=== PATIENT | male | born 1980 | race Caucasian/White ===

== ENCOUNTER 2018-01-21 08:27 | Emergency (ER) | payer SELFPAY ==
[2018-01-21 08:34] VITALS: BP 127/78; PULSE 94; RESP 16; TEMP 206.8; TEMP 97.1; O2SAT 99
--- NOTE | 2018-01-21 08:46 | ED.GENADUL_ITS ---
Disposition Clinical Impression: Cellulitis of hand Disposition: HOME Condition: Good Instructions: Cellulitis (ED) Additional Instructions: Please take the antibiotic as directed. If you notice any spreading of the redness, fever chills, worsening pain please return immediately. If you notice any worsening of your symptoms, or any new symptoms such as vomiting, diarrhea, fever, chills, shortness of breath, chest pain, numbness, weakness, or fainting , please return immediately to the emergency department for reevaluation. Please follow up with your primary care provider as soon as possible for reassessment and reevaluation. As always, it was a pleasure participating in your medical care today. Prescriptions: Clindamycin [Cleocin] 450 mg PO TID #21 cap Medical Decision Making - Medical Decision Making This is a pleasant 38-year-old male with a past medical history of IV drug use in the past, who presents today for evaluation of redness on his hand. He was stuck by a nail 3 days ago, had a small lesion which he was able to exude some pus from on his own, however during his multiple squeezing attempts he feels that it may have spread from the distal ulna to the dorsal aspect of his hand. Currently there is signs of mild cellulitis, no significant abscess noted on ultrasound. Patient has no fever, or chills, vital signs appear within normal limits. Temperature is normal. No signs of systemic bacteremia. Patient does appear clinically well. No evidence of flexor or extensor tenosynovitis on exam. No pain with movement of the finger. At this point we will give the patient a dose of clindamycin here in the ER, secondary to the likelihood of MRSA from his IV drug use. With no signs of systemic infection I feel he can be safely discharged home with close follow-up. We discussed red flags which returned the patient understands. I have extensively reviewed the treatment plan and discharge instructions with the patient. I have addressed all patient concerns at this time. The patient was made aware of what symptoms to monitor for that would warrant a return to the emergency department. Discussed the plan with the patient, they demonstrate verbal understanding and agreement with our assessment and plan at this time. History of Present Illness - General Chief complaint: Orthopedic Stated complaint: RT HAND INJURY Time Seen by Provider: 01/21/18 08:42 - History of Present Illness Initial comments: Pleasant 38-year-old male with past medical history of IV drug use over a year ago who is currently on methadone who presents today for pain in his right hand. 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 He states that 3 or 4 days ago he had a small cut secondary to a cortes nail. This then developed into a small abscess. He lysed it squeezed it multiple times over the last 3 days, in that area improved however it did spread to the dorsal aspect of his hand. He has no significant pain, fever, or chills but states that he was concerned as it seems to be slightly growing. He denies any recent IV drug use or injections in that area. His tetanus shot was updated within the past 2 years here at [facility]. He denies any previous surgeries, he does admit to history of asthma. He denies any current IV or illicit drug use. He denies any pertinent family history. He denies any vomiting diarrhea rash fever , chills, chest pain, headache, vision change, numbness or weakness. He has no other complaints at this time. - Related Data Clindamycin [Cleocin] 450 mg PO TID #21 cap 01/21/18 Methadone [Dolophine] 80 mg PO DAILY 01/21/18 Allergies Allergy/AdvReac Type Severity Reaction Status Date / Time No Known Allergies Allergy Unverified 01/21/18 08:36 Review of Systems Other: 10 point review of systems was performed, pertinent positives and negatives are noted in the history of present illness. Past Medical History - Past Medical History Medical history: no medical history Surgical history: no surgical history General Exam - Other Other exam information: 1.Const: Well-nourished, Well-developed, appearing stated age 2.Eyes: PERRL, no conjunctival injection, and symmetrical lids. 3.ENT: Atraumatic external nose and ears. Moist MM. Neck: Symmetric, trachea midline, No thyromegaly. 4.CVS: +S1/S2, No murmurs or gallops. Peripheral pulses 2+ and equal in all extremities. Brisk capillary refill in all extremities. 5.RESP: Unlabored respiratory effort. Clear to auscultation bilaterally. No wheezes rales or rhonchi 6.GI: Soft, Nontender/Nondistended, No hepatosplenomegaly. No guarding or rebound. 7.MSK: Normocephalic/Atraumatic, Extremities w/o deformity or ttp No cyanosis or clubbing, Normal movement of all extremities. Patient does have a mildly erythematous nonfluctuant lesion with no evidence of abscess noted on bedside ultrasound over the dorsal aspect of his right hand by the medial component of the fifth metacarpal. The area is not warm. There is no active drainage or discharge. No evidence of puncture wound. At the distal ulna, there is evidence of a well-healing scab where his original puncture wound was. The patient has no pain with flexion extension of the wrist flexion or extension of the tendons of the hand. No evidence of active extensor tenosynovitis or flexor tenosynovitis. No other significant abnormalities. The area was outlined with a pen. 8.Skin: Warm, Dry. No rashes or lesions. 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 Sensation grossly intact, no focal neurologic deficits. 10.Psych: (AAO) x3. Appropriate mood and affect Course Vital Signs - 24 hr 01/21/18 08:34 Temperature 97.1 C H Pulse 94 H Respiratory 16 Rate Blood Pressure 127/78 Pulse Oximetry 99
[2018-01-21] MEDS: Clindamycin 150 MG CAP 450 MG PO (08:55)
--- NOTE | 2018-01-23 10:01 | PDOC.ERCMPRO ---
Care Management Progress Note 01/23-Dr. 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 Referral faxed to [facility] this am.
--- NOTE | 2018-01-23 10:03 | CMPROGNOTE_ITS ---
Care Management Progress Note 01/23-Dr. 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 Referral faxed to [facility] this am.
== END 2018-01-21 09:03 | disposition home or self-care (01) ==
PROVIDERS: Emergency Provider Student in an Organized Health Care Education/Training Program
DX: S61.431A Puncture wound without foreign body of right hand, initial encounter (principal); L03.113 Cellulitis of right upper limb; W45.0XXA Nail entering through skin, initial encounter; Y99.0 Civilian activity done for income or pay
CPT/HCPCS: 99283

== ENCOUNTER 2018-01-29 07:44 | Emergency (ER) | payer SELFPAY ==
[2018-01-29 07:52] VITALS: BP 131/110; PULSE 84; RESP 20; TEMP 36.4; O2SAT 90
--- NOTE | 2018-01-29 09:42 | ED.GENADUL_ITS ---
Disposition Clinical Impression: Cellulitis of right hand, Abscess of right hand Disposition: AGAINST MEDICAL ADVICE Condition: Serious Instructions: Cellulitis (ED), Abscess (ED) Additional Instructions: Apply warm compresses to her right hand several times daily for 20 minutes at a time. Take the antibiotics until finished. Take Tylenol or Motrin as needed and directed for pain. Return immediately to the emergency department with any worsening or new concerning symptoms. Prescriptions: Clindamycin [Cleocin] 450 mg PO TID 10 Days cap Medical Decision Making - Radiology Data Radiology results: report reviewed, image reviewed CT right upper extremity: Significant edema over the dorsum of the hand focused on the fifth metacarpal level. No obvious drainable collection noted. X-ray right hand: Dorsal hand swelling along the ulnar aspect of the hand. Findings consistent with cellulitis. No evidence of bony abnormally per - Medical Decision Making 38-year-old male with history of IV drug use, who recently stopped methadone 5 days ago and admitted to IV drug use in his upper extremities and possibly right hand last night who presents with likely a right hand abscess. Patient was seen here 8 days ago for right hand cellulitis after stuck with a nail. ED provider's note at that time did not note an abscess. Patient states he injected methadone in his upper extremity last night to help deal with the pain and his right hand infection blew up since last night. The area on the right dorsal hand appears consistent with likely an abscess. He has significant edema in his right hand compared to his left hand. He has no fever and is not tachycardic with normal blood pressure. Will place an IV, bolus IV fluids, labs , blood cultures, lactate, CT hand to assess extent of infection and give a dose of Toradol for pain. Patient states nothing will touch my pain, especially Toradol. 1025 -- nurse had difficulty obtaining abscess and TRAM Mancera was able to place peripheral IV under ultrasound guidance. Patient states his pain is tolerable if he keeps his right upper extremity elevated and is currently declining pain medication at this time. Patient is feeling symptoms of his restless leg syndrome and he appears anxious. Will give a dose of Ativan. 1033 -- due to brief computer and system downtime this morning, radiology is unable to do CT with IV contrast. Due to concern for abscess, patient will need CT with IV contrast. Will hold on plain CT at this time and obtain right hand x-ray. 1100 --patient denies any relief after Ativan 0.5 mg. He is demanding gabapentin for his restless leg syndrome or states he will leave. Patient is not prescribed this medication therefore I do not feel comfortable giving this to him as he has been getting it off the street. Give a dose of 1 mg Ativan IV. 1130 -- IV contrast with CT scanner not available. Although IV contrast is necessary for infection, will obtain CT w/o contrast for further evaluation. 1140 --radiology states patient unable to sit still for CT. Will give another 1mg ativan. Nurse states that patient is asking to leave again. 1250 --CT right upper extremity notes significant edema in the dorsum of the hand but no obvious drainage collection however this is limited due to lack of IV contrast. Right hand x-ray notes dorsal hand swelling consistent with cellulitis but no bony deformity. Case discussed with orthopedics Dr. Spencer -he agrees that patient would likely need OR I&D and does not recommend invasive intervention in the emergency department. Plan was discussed with patient regarding IV antibiotics and recommend admission for IV antibiotics and likely incision and drainage in the OR. Patient is again refusing to stay. The risks of and disability due to a serious infectious pathology were explained including the risk of losing his hand, sepsis, and patient fully understands and demonstrates capacity to make decisions. Patient states he wants to leave today so he can go to [facility] tomorrow to restart his methadone and then he will return to the ER tomorrow. 1400 --patient was given another hour to help make his decision on whether he wanted to stay and he still refusing. Patient was urged to stay and he was told that we have everything in place that he can get IV antibiotics, IV pain medication if needed, and IV fluids and he still wants to leave. The risks of losing his hand or dying from sepsis were fully explained and he understands these risks and is still refusing. AMA form signed. We will send home with a prescription for clindamycin. Patient was instructed to return immediately to the emergency department with any worsening symptoms. History of Present Illness - General Chief complaint: Cellulitis Stated complaint: HAND INFECTION Time Seen by Provider: 01/29/18 08:31 Source: patient Mode of arrival: ambulatory Limitations: no limitations - History of Present Illness Initial comments: Patient is a 38-year-old male with a history of IV drug use who presents with right hand infection for the past 10 days. Patient was seen here 8 days ago after he was stuck with a nail in his right hand and was noted to have cellulitis but no obvious abscess at that time and given a dose of clindamycin here and a prescription for home. [facility] he did not have the funds to fill the clindamycin prescription and has not taken any antibiotics. [facility] he had been on methadone for the past year due to his previous history of IV drug use but stopped it 5 days ago due to lack of insurance. [facility] he injected heroin in his bilateral upper extremities last night to deal with the pain. [facility] he may have injected around the site of his right hand. [facility] he has had significant worsening of his right hand infection overnight. Denies known fever. - Related Data Clindamycin [Cleocin] 450 mg PO TID #21 cap 01/21/18 Methadone [Dolophine] 80 mg PO DAILY 01/21/18 Clindamycin [Cleocin] 450 mg PO TID 10 Days cap 01/29/18 Allergies Allergy/AdvReac Type Severity Reaction Status Date / Time No Known Allergies Allergy Unverified 01/29/18 07:55 Review of Systems Constitutional: denies: chills, fever Eyes: denies: eye pain ENT: denies: ear pain, dental pain Respiratory: denies: cough, shortness of breath Cardiovascular: denies: chest pain, dyspnea on exertion Gastrointestinal: denies: abdominal pain, nausea, vomiting Genitourinary: denies: urgency, dysuria, frequency Musculoskeletal: denies: back pain Skin: denies: rash, lesions Neurological: denies: headache, weakness, numbness Past Medical History - Past Medical History Sciatica, IV drug use Surgical history: no surgical history - Social History Smoking status: current everyday smoker Drug use: opiates, marijuana General Exam - General Limitations: no limitations General appearance: alert, anxious, other (moderately uncomfortable) - Eye Eye exam: Present: EOMI - Respiratory Respiratory exam: Present: normal lung sounds bilaterally. Absent: respiratory distress, wheezes, rales, rhonchi, stridor - Cardiovascular Cardiovascular Exam: Present: regular rate, normal rhythm. Absent: bradycardia , tachycardia - GI/Abdominal GI/Abdominal exam: Present: soft, normal bowel sounds. Absent: distended, tenderness, guarding, rebound, rigid - Extremities Exam Extremities exam: Present: other (Significantly raised and erythematous area of fluctuance approximately 5 x 5 cm on the dorsal medial hand with surrounding erythema consistent with an abscess. Cap refill less than 2 seconds. There is no crepitus. Significant edema noted to right hand compared to left.) - Neurological Exam Neurological exam: Present: alert, oriented X3 - Psychiatric Psychiatric exam: Present: normal affect - Skin Skin exam: Present: warm, dry, intact Course Vital Signs - 24 hr 01/29/18 07:52 Temperature 97.5 F L Pulse 84 Respiratory 20 Rate Blood Pressure 131/110 Pulse Oximetry 90 L
--- NOTE | 2018-01-29 10:14 | NUR.NOTE ---
Nursing Note: Pt has minimal venous access as he is heavy IV drug user. Peripheral access attempts x3 by EDRN unsuccessful and ED PAwill attempt ultrasound guided. Pt is tolerating to this time.
--- NOTE | 2018-01-29 10:32 | DI.REPORT_ITS ---
SYMPTOM/DIAGNOSIS: RT HAND CELLULITIS/ABSCESS, R/O OSTEOMYELITIS RIGHT HAND: No prior comparison exams are available. There is marked soft tissue swelling over the dorsal aspect of the metacarpal region. No fracture or radiopaque foreign body is seen. No gas collection or bony erosions are present. IMPRESSION: Posterior soft tissue swelling.
[2018-01-29 10:35] LABS: Lactate-non-spesis 1.2 mmol/L (0.6-1.4)
[2018-01-29 10:36] LABS: Abs Immature Grans 0.04 k/cumm (0.0-0.09); Absolute Basophil Count 0.02 k/cumm (0.0-0.2); Absolute Eosinophil Count 0.05 k/cumm (0.0-0.7); Basophils % 0.1; Eosinophils % 0.3; HCT 34.5 % (40.0-50.0); HGB 12.1 g/dL (13.5-17.5); Immature Grans % 0.3; Lymphocytes % 5.5; Mean Corp. HGB Concentration 35.1 g/dL (32.0-36.0); Mean Corpuscular Hemoglobin 29.4 pg (27.0-33.0); Mean Corpuscular Volume 83.9 fL (80-95); Mean Platelet Volume 9.8 fL (8.0-11.0); Monocytes % 5.3; Neutrophils % 88.5; Platelet Count 192 x1000/uL (130-400); RBC 4.11 m/cumm (4.50-6.00); RBC Distribution Width 12.7 % (11.8-14.1); White Blood Cell Count 15.95 k/cumm (4.4-10.8)
[2018-01-29 10:42] LABS: Absolute Lymphocyte Count 0.88 k/cumm (1.2-3.4); Absolute Monocyte Count 0.85 k/cumm (0.11-0.7); Absolute Neutrophil Count 14.12 k/cumm (1.2-6.7)
--- NOTE | 2018-01-29 10:44 | NUR.NOTE ---
Nursing Note: Pt requires ultrasound guided IV and placed by ED PA. #18 to left forearm.
[2018-01-29 10:48] LABS: Anion Gap 8.9 mmol/L (3-11); BUN 15 mg/dL (7-18); CO2 26.1 mmol/L (21.0-32.0); CREATININE 0.99 mg/dL (0.70-1.30); Calcium 8.7 mg/dL (8.5-10.1); Chloride 99 mmol/L (98-107); Glucose 116 mg/dL (70-100); Potassium 3.2 mmol/L (3.5-5.1); Sodium 134 mmol/L (136-145)
[2018-01-29 10:50] LABS: C-Reactive Protein 2.71 mg/dL (0.0-0.3)
[2018-01-29] MEDS: LORazepam 2 MG/ML VIAL 0.5 MG IVP (10:59)
[2018-01-29] MEDS: Normal Saline 1,000 ML 1000 ML IV (11:00)
[2018-01-29] MEDS: Ketorolac 30 MG/ML VIAL IVP (11:00)
--- NOTE | 2018-01-29 11:08 | NUR.NOTE ---
Nursing Note: Pt escalatng in agitated behavior and demanding gabapentin as I am crawling out of my skin and you all don't f--tu understand!!!. Security notified of pts escalting behavior.
[2018-01-29] MEDS: LORazepam 2 MG/ML VIAL 1 MG IVP ×2 (11:10→11:57)
--- NOTE | 2018-01-29 11:12 | NUR.NOTE ---
Nursing Note: Pt in BR with diarrhea and verbalizes you are all ass-h--es and done understand you need to put me out woth the ativan!!
[2018-01-29 11:22] LABS: ESR 27 MM/HR (0-15)
[2018-01-29] MEDS: CLINDAMYCIN 900 MG/50 ML BAG 100 MG IVPB (11:25)
--- NOTE | 2018-01-29 11:26 | NUR.NOTE ---
Nursing Note: Pt allows the lab to complete blood cultures and IV Clindamycin started. Pt is actively back and forth to the BR for loose stool . Following 2nd dose of IV ativan pt is a little more reasonable. 1130: Ambulatory to DI with tech and they are informed he cannot be left alone for fear of elopement with IV in place. Prior to going to radiology pt is fumbling in his pocket I made and a large roll of bills of money falls out of his pocket and he explains I made sure I had $ today for antibiotics.
[2018-01-29 11:33] VITALS: BP 138/79; PULSE 91; RESP 26; TEMP 36.1; O2SAT 100
--- NOTE | 2018-01-29 11:33 | DI.RPTCT_ITS ---
SYMPTOMS/DIAGNOSIS: RIGHT HAND INFECTION, CELLULITIS, ? ABSCESS CT OF THE HAND: Comparison is made with plain films performed earlier the same day. No fracture or bony erosions are seen. There is marked soft tissue swelling over the dorsum of the hand. No foreign body, gas collection or drainable fluid collection is seen. IMPRESSION: Extensive cellulitis over the dorsum of the hand.
--- NOTE | 2018-01-29 12:30 | NUR.NOTE ---
Nursing Note: Pt returned to the ED by JEISON. He completed his films and announces to ED RN I won't be stayin!!. States that the ED MD has no idea how to treat withdrawal and our meds ar a joke. Pt had been advised not to manipulate IV site and when back from DI he is in the process of removing dressing at site and IV fluids are not running. Attempts to irrigate unsuccessful and swelling noted at the site. IV removed.
--- NOTE | 2018-01-29 12:38 | DI.VRAD_ITS ---
EXAM: XR Right Hand Complete, 3 or More Views EXAM DATE/TIME: 01/29/2018 10:33 AM CLINICAL HISTORY: 38 years old, male; Signs and symptoms; Other: R hand cellulitis/abscess, R/O osteomyelitis; Patient HX: Pt unable to hold still for x-ray TECHNIQUE: Frontal, lateral and oblique views of the right hand. COMPARISON: No relevant prior studies available. FINDINGS: Bones/joints: Incidental note made of small bone islands distal radius. No acute fracture. No dislocation. Soft tissues: There is some soft tissue swelling at the ulnar aspect of the level of the fifth metacarpal extending to the dorsum of the hand. No radiopaque foreign body. IMPRESSION: Dorsal hand swelling along the ulnar aspect of the hand. Findings consistent with cellulitis. No evidence for bony abnormality. Preliminary interpretation is based on receipt of 4 image(s). A final report will be issued subsequently. We appreciate the opportunity to be involved in this patient's care. Dictated and Authenticated by: Yoko Casey MD. Ordering:ADRI WAITE MD
--- NOTE | 2018-01-29 12:42 | DI.VRAD_ITS ---
EXAM: CT Right Upper Extremity Without Intravenous Contrast, Hand EXAM DATE/TIME: 01/29/2018 11:34 AM CLINICAL HISTORY: 38 years old, male; Signs and symptoms; Other: R hand cellulitis, R/O abscess; Patient HX: Iv contrast injector down, unable to do iv contrast here TECHNIQUE: Axial computed tomography images of the right hand without intravenous contrast. All CT scans at this facility use at least one of these dose optimization techniques: automated exposure control; mA and/or kV adjustment per patient size (includes targeted exams where dose is matched to clinical indication); or iterative reconstruction. Coronal and sagittal reformatted images were created and reviewed. COMPARISON: CR - RIGHT HAND COMPLETE 2018-01-29 11:24 FINDINGS: Bones/joints: There is significant, diffuse dorsal edema throughout the hand particularly over the fifth metacarpal. There is extent to the carpal level. Unenhanced technique slightly limits evaluation. There is no evidence for drainable collection. No acute fracture. No dislocation. Soft tissues: Unremarkable. IMPRESSION: Significant edema over the dorsum of the hand focused over the fifth metacarpal level. No obvious drainable collection noted allowing for unenhanced technique. Preliminary interpretation is based on receipt of 505 image(s). A final report will be issued subsequently. We appreciate the opportunity to be involved in this patient's care. Dictated and Authenticated by: Yoko Casey MD. Ordering:ADRI WAITE MD
--- NOTE | 2018-01-29 13:16 | NUR.NOTE ---
Nursing Note: Pt continues agitated and had been given a lunch tray which he proceeds to eat from with his fingers, droping food all over the floor/ walking thru it and smearing it on the gurney. When asked what he was doing and why he could not sit and eat as normal his response you got me hig with the Ativan, I told you I needed Gabapentin.!! Repeats many times that we got him high and his agitation/behaviors are our fault!! He has been advised he has to stay in his bed with rails up while in ED for safety but he continues to wander and an extreme amount of nursing time for redirection for safety.
[2018-01-29 14:15] VITALS: BP 143/79; PULSE 89; RESP 22; TEMP 36.9; O2SAT 97
--- NOTE | 2018-01-29 14:45 | NUR.NOTE ---
Nursing Note: 1315: Pt refuses to stay for admission and signs AMA. States he will wait for written instructions and RX that ED MD is willing to give him. He has eaten a sandwich and chips and is resting on the gurney as per ED RN request.
--- NOTE | 2018-01-29 14:58 | NUR.NOTE ---
Nursing Note: 1415: Pt is shown the exit and departs walking stating he probably will have a friend meet him. He has been using his cell phone while in his room. Pt is ambulatory and suggests he keep his arm elevated to assist with pain control. He continues to suggest that we manage his narcotic detox by putting me out with the Ativan instead of just making me high like you have ! but that if we won't he will get methadone tomorrow and be back to the ED. Pt has in his possession written instructions and RX which he states he will go get filled. Pt is observed by security walking down the hill and gazing back to hospital.
--- NOTE | 2018-01-30 09:24 | PDOC.ERCMPRO ---
Care Management Progress Note 01/30-Tried reaching out to Sebastian as he left the emergency department AMA on 01/29. Sebastian was diagnosed with right hand cellulitis and right hand abscess. Called the number listed in Sebastian's chart. It is not a good number. Woman that answered stated that they were not together any more, no further info was available. No other number on chart.
== END 2018-01-29 13:16 | disposition left against medical advice (07) ==
PROVIDERS: Emergency Provider Physician Assistant
DX: L02.511 Cutaneous abscess of right hand (principal); L03.123 Acute lymphangitis of right upper limb; Z53.29 Procedure and treatment not carried out because of patient's decision for other reasons; F11.90 Opioid use, unspecified, uncomplicated
CPT/HCPCS: 36410; 80048; 85652; 87040; 96365; 96374; 96376; 99284; 73130; 73200; 83605; 85025; 86140; J1885; J2060

== ENCOUNTER 2020-11-11 12:10 | Emergency (ER) | payer MEDICAID, SELFPAY ==
[2020-11-11] VITALS (7 sets, daily range): BP systolic 123–137; BP diastolic 86–95; PULSE 59–77; RESP 15–17; TEMP 36.8; O2SAT 99–100
--- NOTE | 2020-11-11 12:30 | RT.EKG_ITS ---
APPROVED REPORT Exam: Resting ECG Reason for Exam: peripheral edema, shortness of breat Patient Location: E HR:71 bpm ECG Measurements Heart Rate 71 AXIS NH 135 P 60 QRSd 95 QRS -38 QT 389 T 42 QTc 422 Conclusion Sinus rhythm...normal P axis, V-rate 60- 99 Left axis deviation...QRS axis (-30,-90) ST elev, probable normal early repol pattern...ST elevation, age<55
--- OUTSIDE RECORDS SUMMARY | 2020-11-11 12:30 | XMS_ITS ---
:1980 Author Care Team Providers Name Role Phone Adrianna Zelaya Primary Care Provider Unavailable Allergies Code Code System Name Reaction Severity Status Onset NKDA ? Medications Name Status Start Date Stop Date ? ? gabapentin 600 mg tablet Active ? Not blaise ilable Take 1 tablet 3 times a day by oral route for 7 days. naltrexone 50 mg tablet Active ? Not avai lable Take 1 tablet every day by oral route for 30 days. Vivitrol 380 mg intramuscular suspension,extended release Active ? Not available Inject 4 mL every 4 weeks by intramuscular route for 1 day. Problems Name Status Onset Date Source ? Anxiety Active 09/30/2020 ? Opioid Dependence Active 09/30/2020 ? 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 Intravenous Drug User Active 09/30/2020 ? Procedures Notes: I&D OF AC ABSCESS SEVERAL YEARS AGO Results Lab Results Date Name Specimen Result Interpretation Description Value Range Status Address ? 09/30/2020 Drug UR ? Amphetamines negative 1,000 Jailyn l [place] Screen, NG/mL NG/mL Health: Urine [address], [place] ? ? UR ? Benzodiazapines negative 200 Final [place] NG/mL NG/mL Health: [address], [place] ? ? UR ABNORMAL Buprenorphine negative 5 Final [place] NG/mL NG/mL Health: [address], [place] ? ? UR ? Cocaine negative 150 Final [place] Metabolite NG/mL NG/mL Health : [address], [place] ? ? UR ? Opiates negative 300 Final [place] NG/mL NG/mL Health: [address], [place] ? ? UR ? Oxycodone negative 300 Final [place] NG/mL NG/mL Health: [address], [place] ? ? UR ? Fentanyl negative 2 Final [place] NG/mL NG/mL Health: [address], [place] ? ? UR ? Ethyl Alcohol negative 10 Final [place] mg/dL mg/dL Health: [address], [place] ? ? UR ? Methadone negative 300 Final [place] Metabolite NG/mL NG/mL Health : [address] ? ? UR ? Urine Creatinine 40.7 mg/dL 20 Fi nal [place] mg/dL Health: [address], [place] ? ? UR ? Urine pH 7.40 4.5-9. Final [place] 0 Health: [address] ? ? UR ? Specific [place] 1.009 1.003- Final [place] 1.035 Health: [address] Past Encounters 10/07/2020 Opioid Dependence Chiquita Gonzalez, LADIES SUIT OPERATOR: [address], [place] [address], Ph. 09/30/2020 Opioid Dependence; Methamphetamine Depen brigidace Adrianna Zelaya, LADIES SUIT OPERATOR: [address] [place] [address], Ph. Social History None recorded. Vaccine List None recorded. Plan of Care Patient Instructions Abstain from opiates for 24 hours unless directed by provider; > If already taking buprenorphine, do not take a dose the day of the induction until you are in the office with your provider; &g t; Comfort medications were recommended. If accepted, please take as prescribed to support your ability to abstain from opiates until your buprenorphine induction; > Keep your buprenorphine RX packa ge closed until you are seen by your pro vider for induction unless otherwise directed; If you have problems abstaining from opiates, please call the office. As part of your individualized treatmen t plan and program requirement, you will need to bring your correct prescription bottle and all used and unused medication and counseling verification to each miguel ointment; > Agree to participate in cou nseling and bring counseling verification to each appointment; > Agree to present for random visits; > Agree to not falsify your urine specimens. Abstai n from opiates for 24 hours unless direc nena by provider; > If already taking buprenorphine, do not take a dose the day of the induction until you are in the office with your provider; > Comfort m edications were recommended. If accepted , please take as prescribed to support your ability to abstain from opiates until your buprenorphine induction; > Keep your buprenorphine RX package closed un til you are seen by your provider for in duction unless otherwise directed; If you have problems abstaining from opiates, please call the office. As part of your individualized treatmen t plan and program requirement, you will need to bring your correct prescription bottle and all used and unused medication and counseling verification to each miguel ointment; > Agree to participate in cou nseling and bring counseling verification to each appointment; > Agree to present for random visits; > Agree to not falsify your urine specimens. Abstai n from opiates for 24 hours unless direc nena by provider; > If already taking buprenorphine, do not take a dose the day of the induction until you are in the office with your provider; > Comfort m edications were recommended. If accepted , please take as prescribed to support your ability to abstain from opiates until your buprenorphine induction; > Keep your buprenorphine RX package closed un til you are seen by your provider for in duction unless otherwise directed; If you have problems abstaining from opiates, please call the office. As part of your individualized treatmen t plan and program requirement, you will need to bring your correct prescription bottle and all used and unused medication and counseling verification to each miguel ointment; > Agree to participate in cou nseling and bring counseling verification to each appointment; > Agree to present for random visits; > Agree to not falsify your urine specimens. Reminders Provider Appointments None recorded. ? ? Lab None recorded. ? ? Referral None recorded. ? ? Procedures None recorded. ? ? Surgeries None recorded. ? ? Imaging None recorded. ? ? Vitals None recorded.
--- OUTSIDE RECORDS SUMMARY | 2020-11-11 12:30 | XMS_ITS | Encounter Summary ---
:1980 Author Reason for Visit OUD - initial visit*; MAT telemedicine* Assessment and Plan Assessment Note This telmed (audio + visual) appoin tment provided a MAT prescription. Time Start: 929; Time End:10:15 Provider Location: home; Patient Locati on: office Telemedicine Consent Given (verbal): Leila PRINGLE IS A 40 YO MALE HERE TODAY FOR AN IN ITIAL VISIT FOR OUD. HE WAS RECENTLY RELEASED FROM [facility] AND HAD HIS FIRST VIVITROL INJECTION ON 09/23/2020 AND WILL BE DUE FOR HIS SECOND ON 10/21/2020. HE WO ULD LIKE TO HAVE CARE WITH THIS OFFICE A S HE CAN WALK THERE. HE DESCRIBES A LONG HISTORY OF OUD, AND STIMULANT USE DISORDER. HE BEGAN USING METH ABOUT 1.5 YEARS AGO AND HAS FOUND THAT HIS LIFE HAS DETERIORATED DUE TO THIS USE. HE STATES THE LOW POINT WAS WHEN HE SLEPT WITH A 17 YEAR OLD, STATES I AM THE DAD OF A 15 YO GIRL- I WOULD NEVER DO THAT WHEN I AM IN MY RIGHT MIND HE REPORTS THAT HIS IS DOING WELL NOW- H E WAS ON 16MG OF SUBOXONE AND STOPPED THIS COLD TURKEY 17 [address] A[address] [facility]. HE STATES THAT HE FELT THAT SUBOXONE ALLOWED HIM TO CONTINUE USING HE COULD ALTERNATE BETWEEN ILLICIT HEROIN U SE AND SUBOXONE. STATES THAT HE WAS THE SAME WHEN HE WAS USING METHADONE YEARS BACK. SEBASTIAN IS SINGLE, HE DOES HAVE A 17 YO SON AND AND 15 YO DAUGHTER. REPORTS HIS IS A LONG TIME IVDU, HAS HAD ID PANELS IN THE PAST, REPORTS THAT THEY HAVE ALWAYS BEEN NEGATIVE. HE DID HAVE RECENT LABS- WILL REQUEST THESE RESULTS SO THAT THEY CAN BE REVIEWED PRIOR TO HIS NEXT INJECTION. DISCUSSED THE RISKS AND BENEFITS OF NAHOMY TROL- INCLUDING OD AND IF OVERRIDE WITH OPIATE IS ATTEMPTED. ADVISED THAT HE WEAR A MEDICAL ALERT BRACELET. PINO HAS BEEN ON GABAPENTIN FOR HIS ANXIE TY SINCE HE WAS IN [facility]. HE IS STARTING WITH A NEW PCP IN SEVERAL WEEKS AND WOULD LIKE TO HAVE THIS MEDICATION COVERED. WILL DO THIS FOR HIM. WILL ORDER NEXT INJECTION AND BACK UP NA LTREXONE. The patient's current phase of treatmen t is Stabilization OUD. Assessment/Plan The patient does meet diagnostic criter ia for opioid dependence. Will proceed with MAT Vivitrol injection at recommended dose, see order. Referrals made today include substance abuse counseling. The audrey [facility]a does not need the suggested e-pres cription of comfort medication. A urine drug screen is ordered, with co nfirmation if positive. See drug screen and medical necessity below. Initial lab studies ordered include HCG (female), CBC with differential, Comprehensive metabolic, Hepatic panel, coag, Hep B, C, and HIV. Education and counseling provided at t he Comprehensive Addiction Initial Assessment included: > The patient is counseled re short ter m goal of harm reduction and the group home goal of abstinence. > Education re risks and benefits of both MAT options: buprenorphine and naltrexone. > If proceeding with buprenorphine, prior to induction with buprenorphine patient is to abstain from short acting opioids 12-24 hours and long acting opioids 72 hours (methadone < 30 mg/day). > If proc eeding with naltrexone, prior to inducti on with naltrexone the patient is to abstain from any opioids 7-10 days and until provider has deemed UDS appropriate to proceed. > Reviewed Program Expectatio ns at length and medication assisted remy atment options. > Education provided re best way to take medication. > Patient was instructed to bring RX bottle to every visit. > Education provided re common and serious side effects of bupre norphine and naltrexone. > Discussed safe keeping of RX including lock box. > Consents and contracts reviewed and signed with patient. > Discussed ration pedro and requirement of psychotherapy to support recovery. > Reviewed process of UDS and random visit requirements. > Discussed the expectation for building trusting relationship to promote a succe ssful recovery. > Reviewed that diversio n or misuse of medication will not be tolerated and is cause for dismissal from the program. Prescription monitoring program is revi ewed. If reviewed, I have identified agents prescribed to the patient in addition to any issued by our program; the patient is counseled regarding any risk of combining sedating agents. 1. Opioid dependence UNSTABLE- NEW TO TREATMENT ? drug screen, urine 2. Methamphetamine dependence UNSTABLE- LAST USE 17 DAYS AGO Discussion Note Education provided at today's visit included: Review of patient's individualized treatment plan; Review of program polici es: RX, visit, counseling and DATA compliance; Review medication administra tion technique; Discussion proper care of medication/safety/lock box; Counseling r e: trigger avoidance, relapse prevention and the importance of developing a sober net work; Counseling re safe sex and control; Review risk of BZD and BUP, as well as ETOH; Counseling re: Discovery & Drop out prevention in early recovery. Educat ion provided at today's visit included: Review of patient's individualized treat ment plan; Review of program policies: RX, visit, counseling and DATA compliance; R eview medication administration technique; Discussion proper care of medication/saf ety/lock box; Counseling re: trigger avoidance, relapse prevention and the im portance of developing a sober network; Counseling re safe sex and control ; Review risk of BZD and BUP, as well as ETOH; Counseling re: Discovery & Theodore p out prevention in early recovery. Education provided at today's visit included: Revi ew of patient's individualized treatment plan; Review of Specialty pharmacy george galvez; Review of program policies: urine screening, medication, visit, counseling requirement; Discussed importance of avoiding opioid and alcohol while on Varsha itrol Treatment; discussed Vivitrol?s common and serious side effects; Counseled sweta abarcaing risk of if overdosed with alcohol or opioid while on Vivitrol treatment; Bakari jovel re: trigger avoidance, relapse prevention and the importance of develop ing a sober network; Counseling re safe sex and control; Counseling re: Discov sweta & Drop-out prevention in early recovery. Greater than 50% of today's visit spent face to face counseling and coordinating care. Education provided at today's visi t included: Review of patient's individualized treatment plan; Review of program policies: RX, visit, counseling and DATA compliance; Review medication admin istration technique; Discussion proper care of medication/safety/lock box; Counselin g re: trigger avoidance, relapse prevention and the importance of developing a sober network; Counseling re safe sex and control; Review risk of BZD and BUP, as well as ETOH; Counseling re: Discovery & Drop out prevention in early recovery. Patient educational handouts: No information available. Plan of Care Patient Instructions Abstain from [...] your urine specimens. Reminders Provider Appointments None ? ? recorded. Lab Drug 09/30/2020 [facility] Screen, Urine Referral None ? ? recorded. Procedures None ? ? recorded. Surgeries None ? ? recorded. Imaging None ? ? recorded. Medications Name Start Date ? ? gabapentin 600 mg tablet ? Take 1 tablet 3 times a day by oral route for 7 days. naltrexone 50 mg tablet ? Take 1 tablet every day by oral route for 30 days. Vivitrol 380 mg intramuscular suspension,extended rele ase ? Inject 4 mL every 4 weeks by intramuscular route for 1 day. Medications Administered None recorded. Vitals None recorded. Results Lab Results Date Name Specimen Result Interpretation Description Value Range Status Address ? 09/30/2020 Drug UR ? Amphetamines negative 1,000 Jail[address] [place] Screen, NG/mL NG/mL Health: Urine [address], [place] ? ? UR ? Benzodiazapines negative 200 Final [place] NG/mL NG/mL Health: [address], [place] ? ? UR ABNORMAL Buprenorphine negative 5 Final [place] NG/mL NG/mL Health: [address], [place] ? ? UR ? Cocaine negative 150 Final [place] Metabolite NG/mL NG/mL Health : [address], [place] ? ? UR ? Opiates negative 300 Final [place] NG/mL NG/mL Health: [address], [place] ? ? UR ? Oxycodone negative 300 Final [place] NG/mL NG/mL Health: [address], [place] ? ? UR ? Fentanyl negative 2 Final [place] NG/mL NG/mL Health: [address], [place] ? ? UR ? Ethyl Alcohol negative 10 Final [place] mg/dL mg/dL Health: [address], [place] ? ? UR ? Methadone negative 300 Final [place] Metabolite NG/mL NG/mL Health : [address], [place] ? ? UR ? Urine Creatinine 40.7 mg/dL 20 Fi nal [place] mg/dL Health: [address], [place] ? ? UR ? Urine pH 7.40 4.5-9. Final [place] 0 Health: [address], [place] ? ? UR ? Specific [place] 1.009 1.003- Final [place] 1.035 Health: [address] Allergies Code Code System Name Reaction Severity Onset NKDA ? ? ? Problems Name Status Onset Date Source ? Anxiety Active 09/30/2020 ? Opioid Dependence Active 09/30/2020 ? 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 Intravenous Drug User Active 09/30/2020 ? Procedures Notes: I&D OF AC ABSCESS SEVERAL YEARS AGO Vaccine List None recorded. Social History None recorded. Family History Relation Problem Onset Age of Age Notes Brother Addiction (No N/A TOO MANY FAMILY Information) MEMBERS TO LIST . Mother Alcohol abuse (No N/A (No Notes) Information) Functional Status Unknown. Past Encounters 09/30/2020 Opioid Dependence; Methamphetamine Depen yesika Zelaya, WOOL HAT HYDRAULICKER: [address] [place] [address], Ph. History of Present Illness Note: <p><strong>Initial MAT HPI</strong>
</p>The patient presents today seeking outpatient treatment for {{opiate* alcohol both opiate and alcohol}} dependence.
Current readiness for treatment/stage of change is described as {{pre-contemplation contemplation pr eparation action* maintenance}}.
Onset of substance dependence, beginning with first substance used and all illicit and/or prescription abuse to date and including current substances: {{I hurtmy back in my 20s and was started on pain pills and it just went on from there. I started using oxy [address] and injecting everything. I started using meth in the last year and it blew my life apart.# CLICK TO FREE TEXT}}.
Current or most recent route of primary substance use is described as {{oral intranasal skin popping intravenous*}}.

The patient {{d enies reports*}} a history of IV drug use.
The patient {{denies* reports}} a history of overdose. The patient {{denies reports*}} a history of witnessing an overdose.
The patient {{denies reports*}} having ever used or been prescribed Methadone. The patient's last exposure to Methadone was TWO YEARS AGO
The patient {{denies reports*}} having ever used or been prescribed Buprenorphine. The patient's last exposure to Buprenorphine was 17 DAYS AGO

<strong>Attempts to stop including past and/or most recent:</strong>
> Inpatient detox: {{Y* N}}
> Residential and/or Sober Housing: {{Y N*}}
> Periods of sobriety during incarceration: {{Y* N}}
> Intensive Outpatient Program: {{Y* N}}
> Partial Hospitalization Program: {{Y N*}}
> Medication assisted treatment program(s): {{Y* N}}
Most successful program to date has been {{none methado ne/OTP inpatient residential sober living buprenorphine bup+residential Vivitrol* Vivitrol+residentia l incarceration}}.
The patient describes individual goals for substance dependence treatment as {{I WANT TO BE FREE# CLICK TO FREE TEXT}}.<p></p><p></p> Review of Systems ? Comprehensive Adult Problem ROS Reported By: Patient Constitutional: Constitutional: no significa nt weight change, no fever, normal activity level Cardiovascular: Cardiovascular: no chest klaudia n Respiratory: Respiratory: no cough, no ch est tightness, normal respiration Gastrointestinal: GI: no nausea, no vomiting, no diarrhea, no constipation Musculoskeletal: Musculoskeletal: no myalgia, moves all extremities well, no trauma Neurological symptoms: Neuro: no headache Psychiatric: Psych: no suicidal thoughts, no homicidal thoughts, depression, anxiety, insomni a, stress Physical Exam ? General Adult Exam* Reported By: Patient Constitutional*: General Presentation: health y-appearing, well-developed. Level of Distress:* no apparent distr ess (NAD)*, responsive in conversation*. Ambulation: a mbulating normally Psychiatric*: Insight:* good judgement*. M jenni:* recent memory normal*. Mental Status* active & alert*, nor mal affect*, normal mood* Head: Head: normocephalic, atrauma tic Lungs*: Auscultation: no auscultatio n Musculoskeletal:: Joints, Bones, and Muscles: normal movement of all extremities Neurologic*: Orientation:* to time*, to p lace*, to person*
--- OUTSIDE RECORDS SUMMARY | 2020-11-11 12:30 | XMS_ITS | Encounter Summary ---
:1980 Author Reason for Visit OUD - naltrexone follow-up - weekly*; MA Javier telemedicine* Assessment and Plan Assessment Note Telemedicine Information: This telmed (audio + visual) appointmen t provided a MAT prescription. Time Start: 11:35; Time End:11:51 Provider Location: office; Patient Loca tion: home Telemedicine Consent Given (verbal): Y The patient's current phase of treatment is Stabilization OUD Review of recent UDS and LCMS is NEGATIV E FOR ALL ILLICIT SUBSTANCES AND EtOH The patient does meet diagnostic criteri a for opioid dependence. The patient doescontinue to be a good ca ndidate for this level of care. Urine drug screen with medical necessity ordered today see below. MEDICAL UPDATE: THIS IS THE 2ND VISIT FOR THIS PATIENT W HO STATES HE HAS NOT USED OPIOIDS IN 12 YEARS. SAYS HE CHOSE TO GO ON [facility] AFTER COMING OFF SUBOXONE BECAUSE I'M AN ADDICT AND DOESN'T WAN T TO RELAPSE. ALSO SAYS IT HELPS WITH P ROBATION. LAST USE OF ILLICIT SUBSTANCES WAS IN [facility] JUST BEFORE GOING INTO REHAB. USED METH, CRACK, LSD AND VYVANSE THE NIGHT BEFORE GOING INTO REHAB STATES NO SUBSTANCES SINCE. STATES HE WE NT TO REHAB TO COME OFF OF SUBOXONE, NOT FOR OTHER DRUG OR EtOH USE PT STILL SUFFERS FROM INSOMNIA WHICH HE ATTRIBUTES TO PROLONGED WITHDRAWAL FROM SUBOXONE. HAS TRIED PRESCRIBED SEROQUEL AND TRAZODONE WITHOUT MUCH HELP. TOOK A FRIEND'S AMITRIPTYLINE WITH GOOD RESULTS. I HAVE EMPHASIZED IT IS NOT SAFE TO TAKE ANOTHER PERSON'S PRESCRIPTION MEDICATION. SAYS HE WILL NOT TAKE ANY MORE. PT IS RESISTANT TO COMING WEEKLY FOR VIS ITS/UDS. DESPITE RECENT USE OF CRACK AND METH, FEELS HE IS STABLE I HAVE EXPLAINED THAT HE WILL NEED 8 WEE KS OF NEG SCREENS BEFORE HE CAN PROGRESS TO BIWEEKLY VISITS SAYS HE WILL COMPLY BUT I'M NOT HAPPY TODAY'S VISIT WAS VIA [facility] BECAUSE HE DI DN'T REALIZE HE NEEDED TO COME IN. STATES HE WILL GO TO [facility] TOMORROW TO GIVE UDS SPECIMEN Visit frequency recommendations include continue current frequency of visits. Treatment plan review or change TODAY in cludes continue current level of care. PT WILL NEED NEXT VIVITROL INJECTION ON 10/21/20 39299 Medical Necessity UDS is ordered today for a routine presu mptive screen. Results will be confirmed to assess those illicit substances showing positive on the presumptive screen, the substance dependency and the effectiveness of treatment. A Qualitative Urine Drug screening may i nclude the following substances: amphetamines, benzodiazepines, buprenorphine, cocaine metabolites, ethanol, methadone, opiates, oxycodone, fentanyl and THC. This patient has an extraordinarily high pre test probability of current positive illicit substance use given the previously documented substance use pattern (see Initial visit, follow up visits and past med ical/social history) in addition to a hi story of longstanding substance dependence. G0480 Medical Necessity Definitive/quantitative drug testing may be ordered due to the unexpected drug test results from the presumptive/qualitative drug test ordered at the patient visit. This test may include confirming the presence of an illicit substance in one or more of the following drug classes: amphetamines, benzodiazepines, buprenorphine, cocaine metabolites and opiates or for the lack of a prescribed substance. Th e results of the definitive test are req uired to assess the patient?s substance use dependency and the effectiveness of the treatment. Specimen validity testing is performed to ensure the integrity of the sample. [place] [address] [place] [address] or negative for buprenorphine. G0481 Medical Necessity Definitive/quantitative drug testing may be ordered due to the unexpected drug test results from the presumptive/qualitative drug test ordered at the patient?s Initial or Re-Initial visit. This t est may include confirming the presence of an illicit substance in one or more of the following drug classes: Opiates, Cocaine, Benzos, Amphetamines, Gabapentin, Pregabalin, Zolpidem, Tramadol, Methylph enidate or for the lack of a prescribed substance. The results of the definitive test are required to assess the patient?s substance use dependency and the effectiveness of the treatment. Specime n validity testing is performed to ensur e the integrity of the sample. [place] [address] is positive for Opiat es and at least one other class in combination. 1. Opioid dependence UNSTABLE--NEWLY IN TREATMENT ? drug screen, urine Discussion Note Education provided at today's visit included: Review of patient's individualized treatment plan; Review of program polici es: urine screening, medication, visit, counseling requirement; Discussed import ance of avoiding opioid and alcohol while taking naltrexone; discussed naltrexone? s common and serious side effects; Counseling re: trigger avoidance, relapse preventio n and the importance of developing a sober network; Counseling re safe sex and tom h control; Counseling re: Discovery & Drop-out prevention in early recovery. G reater than 50% of today's visit spent face to face counseling and coordinating care . Patient educational handouts: No information available. Plan of Care Reminders Provider Appointments None ? ? recorded. Lab Drug 10/07/2020 [facility] Screen, Urine Referral None [...] recorded. Vitals None recorded. Results Lab Results None recorded. Allergies Code Code System Name Reaction Severity [...] Notes) Information) Functional Status Unknown. Past Encounters 10/07/2020 Opioid Dependence Chiquita Gonzalez, DIABETES SPECIALIST: [address] [place] [address], Ph. 09/30/2020 Opioid Dependence; Methamphetamine Depen yesika Zelaya, DIABETES SPECIALIST: [address] [place] [address], Ph. History of Present Illness Note: <p>The patient is here for {{oral naltrexone follow up oral naltrexone challenge pre-Vivitrol Vivitrol injection Vivitrol follow up*}} visit.
The patient reports {{doing better doing well* struggling}} since last visit and {{denies* reports}} slip or relapse.

<strong>MAT HPI</strong>
They {{deny* report}} cravings for {{opiates* alc ohol opiates and alcohol}} and {{deny* report}} {{opiates* alcohol opiates and alcohol}} use since their last visit.
They {{deny* report}} cravings for other substances and {{deny* report}} other substance use since their last visit.
Triggers {{are are not*}} identified
Withdrawal symptoms {{are are not*}} present.

<strong>MAT Naltrexone Ad ministration and Program Adherence</strong>
The patient {{denies* describes}} problems at the last injection site. INJECTION WAS GIVEN WHILE IN REHAB 2 WEEKS AGO. STATES HE TOLERATED IT WELL
The patient {{denies* reports}} side effects from the medication.
</p> Review of Systems ? Comprehensive Adult Problem ROS Reported By: Patient Constitutional: Constitutional: normal activ ity level, no chills, no excessive sweating Gastrointestinal: GI: no abdominal pain, no na usea, no vomiting, no diarrhea, no constipation Musculoskeletal: Musculoskeletal: no myalgia Neurological symptoms: Neuro: no headache Psychiatric: Psych: no suicidal thoughts, no depression, no anxiety, no insomnia Physical Exam ? General Adult Exam* Reported By: Patient Constitutional*: General Presentation: health y-appearing, well-developed. Level of Distress:* no apparent distr ess (NAD)*, responsive in conversation* Psychiatric*: Mental Status* active & aler t*, normal affect* Skin: Inspection and palpation: no rash, no lesions
--- NOTE | 2020-11-11 12:41 | W.ED.GENAD ---
Discharge Plan Disposition Patient Disposition: HOME Condition: Good Discharge Details Clinical Impression: Malaise, Edema, peripheral Primary Care Provider: Red Tobar ED Provider: June Keys Home Meds and New Rx's Prescriptions: New furosemide [Lasix] 20 mg tablet 10 mg PO ONCE PRN (Reason: edema) Qty: 7 RF: 0 No Action No Known Home Meds RF: 0 Discharge Instructions Additional Instructions: Please primary care acquire pcp Written you a prescription for several tabs of Lasix, this medication can cause your electrolytes to be abnormal, only take it if you have pain with peripheral swelling It is very important that you follow-up/acquire primary care physician Elevate your legs if they become swollen Please return should you have new or worsening complaints including shortness of breath, chest pain, fever, chills, or with any new or worsening Discharge Data Discharge Date/Time-TO BE ENTERED AT DEPARTURE: 11/11/20 14:02 Medical Decision Making Sed rate is within normal limits, diagnostic labs are all quite reassuring, chest x-ray does not show acute pathology, patient feels well and only have mild peripheral edema He was given several tablets of Lasix which she can take as needed He is given referral for primary care physicianon the care management list for follow-up Thyroid does not show acute pathology, he is alert, oriented, of decisional capacity, and well in appearance No clinical evidence of endocarditis on my exam today, no evidence of volume overload, distal pulses intact, no abdominal bruit or pulsatile male Denies any current chest pain or shortness of breath Differential Diagnosis Differential Diagnosis: Endocarditis, CHF, peripheral vascular disease, venous stasis Medical Records Medical records reviewed: Yes I reviewed the patient's medical records. Lab Data Lab results reviewed: Yes I reviewed the patient's lab results. ECG Data Prior ECG tracings: available for review HPI General Mode of arrival: ambulatory. Date/Time Provider Initiated Documentation: 11/11/20 12:12. Limitations to Documentation: no limitations. Information obtained by: patient. HPI Narrative: This 40-year-old gentleman with history of IV drug abuse presents with report of peripheral edema. States he has had an increasing fatigue. Denies any current chest pain or shortness of breath. States symptoms are exacerbated with exertion. Last used IV heroin 1 year ago. States she has been using intermittent oral Suboxone and Ritalin to try to help with his fatigue. But if he denies any fever or chills. Denies any rashes or lesions. States he has paresthesias in his lower extremities as well. Denies any orthopnea. States that he lays down for an extended period of time his symptoms partially dissipate. Denies prior history of similar symptoms in the past. States that going on for approximately 1.5 months Related Data Home Medications Medication Instructions Recorded Confirmed Unknown [No Known Home Meds] 11/11/20 11/11/20 furosemide [Lasix] 10 mg PO ONCE PRN #7 tab 11/11/20 Previous Rx's Medication Instructions Recorded furosemide [Lasix] 10 mg PO ONCE PRN #7 tab 11/11/20 Allergies Allergy/AdvReac Type Severity Reaction Status Date / Time No Known Allergies Allergy Unverified 11/11/20 12:25 General Stated Complaint: GenMedical TYLER: 3 Review of Systems Narrative: Review of systems obtained x7 aside from where indicated in HPI [facility] Social History (Updated 10/30/20 @ 08:21 by Teodora Enciso RN, RN) Smoking/Tobacco Use Status: Current every day Tobacco Type: cigarettes Smoking risk assessment performed?: Yes Alcohol Intake: never Drug use: Current Sobriety Details: 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 ritalin recently Do you feel safe in your relationship?: Yes Exam Const General: cooperative and comfortable Orientation: alert and oriented x3 Eyes Pupils: PERRL Chest Chest: normal inspection of the chest Resp Effort & Inspection: normal respiratory effort Cardio Rate: regular rate Rhythm: regular rhythm Heart Sounds: no murmurs GI Inspection: normal to inspection Skin General skin exam: no rashes or lesions noted Neuro General: patient alert and patient oriented x3 Extrem Other: 1+ edema to bilateral upper and lower extremities Course Vital Signs Vital signs: Vital Signs Temperature 36.8 C 11/11/20 12:20 Pulse 77 11/11/20 12:20 Respiratory Rate 16 11/11/20 12:20 Blood Pressure 137/95 H 11/11/20 12:20 Pulse Oximetry 99 11/11/20 12:20 Temperature 36.8 C 11/11/20 12:20 Temperature Source Skin 11/11/20 12:20 Pulse 77 11/11/20 12:20 Respiratory Rate 16 11/11/20 12:20 Respiratory Effort Non-Labored 11/11/20 12:20 Blood Pressure 137/95 H 11/11/20 12:20 Blood Pressure Position Supine 11/11/20 12:20 Pulse Oximetry 99 11/11/20 12:20 Oxygen Delivery Method Cpap 11/11/20 12:20 Oxygen Flow Rate 0 11/11/20 12:20 Pain Level 1 11/11/20 12:20
[2020-11-11 13:12] LABS: Abs Immature Grans 0.01 10^3/uL (0.0-0.06); Absolute Basophil Count 0.01 10^3/uL (0.0-0.2); Absolute Eosinophil Count 0.12 10^3/uL (0.0-0.7); Absolute Lymphocyte Count 1.39 10^3/uL (1.2-3.4); Absolute Monocyte Count 0.38 10^3/uL (0.1-0.8); Absolute Neutrophil Count 3.85 10^3/uL (1.2-6.7); Basophils % 0.2; Eosinophils % 2.1; HCT 41.9 % (40.0-50.0); Immature Grans % 0.2; Lymphocytes % 24.1; MCHC 33.4 % (32.0-36.0); MCV 86.9 fL (80-95); MPV 9.6 fL (8.0-11.0); Monocytes % 6.6; Neutrophils % 66.8; Nucleated RBC 0 %; Platelet Count 252 10^3/uL (130-400); RBC 4.82 10^6/uL (4.36-5.78); RDW 12.6 % (11.8-14.1); WBC 5.76 10^3/uL (4.4-10.8)
[2020-11-11 13:14] LABS: ESR 6 mm/hr (0-15)
[2020-11-11 13:29] LABS: Bilirubin Negative (Negative); Blood Trace-intact (Negative); Clarity Clear (Clear); Glucose Negative (Negative); Ketones Negative (Negative); Leukocyte Esterase Negative (Negative); Nitrite Negative (Negative); Specific Gravity 1.025 (1.005-1.025); Urobilinogen 0.2 EU/dL (Up TO 0.2)
[2020-11-11 13:39] LABS: TSH 2.48 uIU/mL (0.36-3.74)
[2020-11-11 13:39] LABS: Bacteria Few HPF (Negative); C & S Indicated? No; Casts Negative LPF (Negative); Crystals Negative HPF (Negative); Epithelial Cells Negative HPF (Negative); Mucus Moderate (Negative); WBC 0-2 HPF (0-5)
[2020-11-11 13:42] LABS: ALT 21 U/L (16-63); AST 14 U/L (15-37); Albumin 3.7 g/dL (3.4-5.0); Alkaline Phosphatase 61 U/L (46-116); Anion Gap 7.4 mmol/L (3-11); BUN 14 mg/dL (7-18); Bilirubin, Total 0.4 mg/dL (0.2-1.0); CO2 28.6 mmol/L (21.0-32.0); CREATININE 0.9 mg/dL (0.70-1.30); Calcium 8.6 mg/dL (8.5-10.1); Chloride 104 mmol/L (98-107); Glucose 102 mg/dL (74-106); Magnesium 1.9 mg/dL (1.8-2.4); NT-proBNP 35 pg/mL (<300); Potassium 4.2 mmol/L (3.5-5.1); Sodium 140 mmol/L (136-145); Total Protein 7.2 g/dL (6.4-8.2)
[2020-11-11 13:43] LABS: Troponin I < 0.05 ng/mL (<0.06)
--- NOTE | 2020-11-11 13:52 | NUR.NOTE ---
Nursing Note: Referral given to Care Management to establish care w/PCP and for routing follow up. Edith Coker
--- NOTE | 2020-11-11 14:16 | DI.RAD_ITS ---
Exam(s) XR CHEST 2V PA LATERAL EXAM: XR CHEST 2V PA LATERAL CLINICAL HISTORY: peripheral edema TECHNIQUE: 2D digital imaging was performed. COMPARISON: No exams were available for comparison FINDINGS: MEDIASTINUM: Normal. HEART: Normal. PULMONARY VASCULATURE: Normal. LUNGS: Clear. PLEURAL SPACE: No pleural effusion or pneumothorax. BONE:Normal. OTHER FINDINGS:Normal. IMPRESSION: No acute pulmonary findings. DATA REPOSITORY: RADIATION DOSE DELIVERED:
--- NOTE | 2020-11-17 09:46 | PDOC.ERCMPRO ---
- If Service Date Differs Date of service: 11/17/20 Time of Service: 09:47 Care Management Progress Note Sebastian is seen in the ED for edema and malaise. At the request of ED provider, CM coordinates a referral to MOLLY Jackson, of [facility], on-call provider, to assist Sebastian in obtaining a follow up appointment and in establishing care with a PCP. Sebastian has Medicaid for insurance.
== END 2020-11-11 14:02 | disposition home or self-care (01) ==
PROVIDERS: Emergency Provider Physician Assistant; PCP Family Medicine
DX: R53.81 Other malaise (principal); R60.0 Localized edema
CPT/HCPCS: 36415; 80053; 85652; 93005; 99284; 71046; 81003; 81015; 83735; 83880; 84443; 84484; 85025; 93010; 99283

== ENCOUNTER 2021-01-23 15:24 | Emergency (ER) | payer MEDICAID, SELFPAY ==
--- NOTE | 2021-01-23 15:30 | DI.CT_ITS ---
Exam(s) CT HEAD WO EXAM: CT HEAD WO CLINICAL HISTORY: L trauma, pain. TECHNIQUE: Imaging Protocol: Axial computed tomography images with coronal and sagittal reformatted images were created and reviewed COMPARISON: No exams were available for comparison FINDINGS: The ventricular system is normal in appearance. No evidence of acute intracranial hemorrhage, mass effect, or midline shift. The orbital structures are unremarkable. The temporal bone structures appear intact. Calvarium: Normal. Visualized Paranasal sinuses/Mastoids: Clear. IMPRESSION: No evidence of acute intracranial process. Left frontal scalp soft tissue injury noted. RADIATION DOSE DELIVERED: 792.17mGy.cm Total DLP 792.17mGy.cm Total DLP 39.59mGy CTDIvol DATA REPOSITORY: All CT scans at this facility are submitted to the National Radiology Data Registry (NRDR) Dose Index Registry (DIR) with the [employer] (A[employer]). RADIATION OPTIMIZATION: All CT scans at this facility use at least one of these dose optimization te chniques: automated exposure control; mA and/or kV adjustment per patient size (includes targeted exa ms where dose is matched to clinical indication); or iterative reconstruction.
[2021-01-23 15:32] VITALS: BP 123/75; PULSE 93; RESP 16; TEMP 36.2; O2SAT 97
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
[2021-01-23] MEDS: Lidocaine/Epinephri/Tetracaine Topical Gel 3 ML TP (15:47)
--- NOTE | 2021-01-23 16:20 | DI.VRAD_ITS ---
PROCEDURE INFORMATION: Exam: CT Head Without Contrast Exam date and time: 01/23/2021 3:39 PM Age: 41 years old Clinical indication: Left-sided head trauma, pain TECHNIQUE: Imaging protocol: Computed tomography of the head without contrast. Radiation optimization: All CT scans at this facility use at least one of these dose optimization techniques: automated exposure control; mA and/or kV adjustment per patient size (includes targeted exams where dose is matched to clinical indication); or iterative reconstruction. COMPARISON: No relevant prior studies available. FINDINGS: Brain: No intracranial hemorrhage or extra-axial fluid collection. No evidence of mass effect or midline shift. Matias-white matter differentiation is intact. Cerebral ventricles: No ventriculomegaly. Paranasal sinuses: Visualized sinuses are unremarkable. No fluid levels. Mastoid air cells: Unremarkable. Bones/joints: No acute osseus lesion or fracture. Soft tissues: Superior left frontal scalp contusion and laceration. IMPRESSION: 1. No acute intracranial pathology. 2. Superior left frontal scalp contusion and laceration. Dictated and Authenticated by: Kannan Ceballos MD. Ordering:MARION Welch MD
== END 2021-01-23 16:24 | disposition home or self-care (01) ==
PROVIDERS: Emergency Provider Emergency Medicine
DX: S01.01XA Laceration without foreign body of scalp, initial encounter (principal); W21.11XA Struck by baseball bat, initial encounter
CPT/HCPCS: 12004; 99284; 70450; 99283

== ENCOUNTER 2021-02-02 11:58 | Emergency (ER) | payer MEDICAID, SELFPAY ==
--- NOTE | 2021-02-02 12:04 | ED.GENADUL_ITS ---
Discharge Plan Disposition Patient Disposition: HOME Condition: Stable Discharge Details Clinical Impression: Encounter for removal of morena Primary Care Provider: Unknown,Unknown ED Provider: Lana Garcia Home Meds and New Rx's Prescriptions: No Action furosemide [Lasix] 20 mg tablet 10 mg PO ONCE PRN (Reason: edema) Qty: 7 RF: 0 buprenorphine-naloxone [Suboxone] 8-2 mg film 1 film sublingual DAILY RF: 0 gabapentin 600 mg tablet 600 mg PO PRN PRNRF: 0 buprenorphine-naloxone [Suboxone] 12-3 mg film 1 film sublingual DAILY RF: 0 Discharge Instructions Instructions: Stitches Removal (ED) Additional Instructions: Follow up with primary care provider in 3-5 days if needed. Return to ED sooner if any worsening or concerns. Increase oral fluids. Please take Tylenol or Ibuprofen with food every 4-6 hours as needed for pain and swelling. Discharge Data Discharge Date/Time-TO BE ENTERED AT DEPARTURE: 02/02/21 12:08 Medical Decision Making 7 morena removed from laceration to the left scalp. Patient tolerated well. No dehiscence or complications noted post procedure. HPI General Mode of arrival: ambulatory . Date/Time Provider Initiated Documentation: 02/02/21 11:59 . Limitations to Documentation: no limitations . Information obtained by: patient, RN notes reviewed and old records reviewed . HPI Narrative: Patient here for staple removal. Patient had 8 morena placed to the left scalp approximately 10 days ago. Patient reports that 1 fell out at home. He does have 7 intact morena noted to a well approximated laceration to left scalp. He denies any problems or signs of infection at home. Related Data Home Medications Medication Instructions Recorded Confirmed furosemide [Lasix] 10 mg PO ONCE PRN #7 tab 11/11/20 buprenorphine-naloxone [Suboxone] 1 film SUBLINGUAL DAILY 01/23/21 01/23/21 buprenorphine-naloxone [Suboxone] 1 film SUBLINGUAL DAILY 01/23/21 01/23/21 gabapentin 600 mg PO PRN PRN 01/23/21 01/23/21 Previous Rx's Medication Instructions Recorded furosemide [Lasix] 10 mg PO ONCE PRN #7 tab 11/11/20 Allergies Allergy/AdvReac Type Severity Reaction Status Date / Time No Known Allergies Allergy Unverified 01/23/21 15:34 General TYLER: 3 Review of Systems Integumentary/Breasts Skin/Breast: Reports as per HPI [facility] Social History Smoking/Tobacco Use Status: Current every day Tobacco Type: cigarettes Smoking risk assessment performed?: Yes Alcohol Intake: never Drug use: Current Sobriety Details: 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 ritalin recently Do you feel safe at home: Yes Do you feel safe in your relationship?: Yes Exam [facility] Head images: 1. Well approximated laceration with [address], no surrounding erythema, drainage, or signs of infection. Procedures Other Description: Staple removal
[2021-02-02 12:06] VITALS: BP 134/72; PULSE 76; RESP 16; TEMP 36.7; O2SAT 97
== END 2021-02-02 12:08 | disposition home or self-care (01) ==
PROVIDERS: Emergency Provider Registered Nurse Emergency
DX: S01.01XD Laceration without foreign body of scalp, subsequent encounter (principal); W21.11 Struck by baseball bat; Z48.02 Encounter for removal of sutures

== ENCOUNTER 2023-04-25 01:08 | Outpatient (CLI) | payer MEDICAID, SELFPAY ==
[2023-04-25 11:39] LABS: Absolute Basophil Count 0.02 10^3/uL (0.0-0.2); Absolute Eosinophil Count 0.11 10^3/uL (0.0-0.7); Absolute Lymphocyte Count 1.49 10^3/uL (1.2-3.4); Absolute Monocyte Count 0.27 10^3/uL (0.1-0.8); Absolute Neutrophil Count 2.46 10^3/uL (1.2-6.7); Basophils % 0.5; Eosinophils % 2.5; HCT 39.8 % (40.0-50.0); HGB 13.7 g/dL (13.5-17.5); Lymphocytes % 34.3; MCH 29.2 pg (27.0-33.0); MCHC 34.4 % (32.0-36.0); MCV 85 fL (80-95); MPV 9.4 fL (8.0-11.0); Monocytes % 6.2; Neutrophils % 56.5; Platelet Count 198 10^3/uL (130-400); RBC 4.69 10^6/uL (4.36-5.78); RDW 12.3 % (11.8-14.1); RDW-SD 37.6 fL; WBC 4.35 10^3/uL (4.4-10.8)
[2023-04-25 12:14] LABS: ALT 27 U/L (16-63); AST 28 U/L (15-37); Albumin 4.1 g/dL (3.4-5.0); Alkaline Phosphatase 76 U/L (46-116); Anion Gap 7.9 mmol/L (3-11); BUN 15 mg/dL (7-18); Bilirubin, Total 0.4 mg/dL (0.2-1.0); CO2 27.1 mmol/L (21.0-32.0); Calcium 9.4 mg/dL (8.5-10.1); Chloride 105 mmol/L (98-107); Estimated GFR 95.77 (mL/min/1.73m2); Glucose 121 mg/dL (74-106); Potassium 4.2 mmol/L (3.5-5.1); Sodium 140 mmol/L (136-145); Total Protein 7.4 g/dL (6.4-8.2)
[2023-04-25 12:33] LABS: *AMPHETAMINES SCREEN URINE Negative (Negative); *BARBITURATES SCREEN URINE Negative (Negative); *BENZODIAZEPINES SCREEN URINE Negative (Negative); Cannabinoids THC Negative (Negative); Cocaine Screen,Urine Negative (Negative); METHADONE URINE SCREEN Negative (Negative); OPIATES URINE SCREEN Negative (Negative)
[2023-04-25 12:35] LABS: Tricyclic Antidepressants Negative (Negative)
[2023-04-26 14:20] LABS: Chlamydia Result Negative (Negative); GC Result Negative (Negative)
[2023-04-27 11:46] LABS: TB Interpretation Negative (Negative); TB1 Ag minus Nil 0.02 IU/ml; TB2 Ag minus Nil 0.01 IU/mL
[2023-04-28 11:04] LABS: Buprenorphine 400.1 ng/mL (Cutoff: 5.0); Norbuprenorphine 763.7 ng/mL (Cutoff: 2.5)
[2023-04-28 16:21] LABS: Fentanyl Interpretation Negative.; Fentanyl by LC-MS/MS Not Detected; Norfentanyl by LC-MS/MS Not Detected
== END 2023-04-25 01:09 | disposition home or self-care (01) ==
PROVIDERS: Visit Provider Physician Assistant Surgical
DX: F11.20 Opioid dependence, uncomplicated (principal); Z72.89 Other problems related to lifestyle; Z11.4 Encounter for screening for human immunodeficiency virus [HIV]; Z11.59 Encounter for screening for other viral diseases
CPT/HCPCS: 36415; 80053; 80307; 80348; 86704; 86706; 86709; 86803; 87340; 87389; 87491; 87591; 80354; 85025; 86480; 86592; 86780

== ENCOUNTER → 2023-09-09 13:39 | Outpatient (CLI) | payer MEDICAID, SELFPAY ==
--- NOTE | 2023-09-09 | DI.US_ITS ---
Exam(s) US LOWER EXTREMITY VENOUS RT EXAM: US LOWER EXTREMITY VENOUS RT CLINICAL HISTORY: PAIN RT LOWER LEG, M79.661 TECHNIQUE: Grayscale, color, and doppler imaging of the deep venous system of the right lower extrem ity was performed. COMPARISON: No exams were available for comparison FINDINGS: This study is negative for DVT but is positive for superficial thrombophlebitis in the saphenous syst em. With respect of the deep system: There is no evidence of intraluminal thrombus and there is normal compression and augmentation demons trated within the common femoral vein, femoral vein, and popliteal vein. In the ipsilateral calf the interrogated deep veins also exhibit normal compression/ augmentation pro perties. With respect to the superficial veins: There is intraluminal thrombus in the right greater saphenous vein within the distal thigh through th e mid calf, this intraluminal thrombus measuring 15-16 cm length. There is also thrombus within the superficial saphenous vein in the proximal calf through the distal right calf, measuring approximately 12 cm length. IMPRESSION: 1. Although there is no evidence of DVT, there is significant thrombophlebitis of the saphenous syst em both in the greater saphenous and superficial saphenous veins. DATA REPOSITORY:
== END ==
PROVIDERS: Visit Provider Physician Assistant Medical
DX: M79.661 Pain in right lower leg (principal)
CPT/HCPCS: 93971

== ENCOUNTER 2023-09-09 13:42 | Outpatient (CLI) | payer MEDICAID, SELFPAY ==
[2023-09-09 13:31] LABS: Abs Immature Grans 0.01 10^3/uL (0.0-0.06); Absolute Basophil Count 0.02 10^3/uL (0.0-0.2); Absolute Eosinophil Count 0.27 10^3/uL (0.0-0.7); Absolute Lymphocyte Count 1.84 10^3/uL (1.2-3.4); Absolute Monocyte Count 0.47 10^3/uL (0.1-0.8); Basophils % 0.4; Eosinophils % 4.8; HCT 44.1 % (40.0-50.0); HGB 14.8 g/dL (13.5-17.5); Immature Grans % 0.2; Lymphocytes % 32.8; MCH 28.6 pg (27.0-33.0); MCHC 33.6 % (32.0-36.0); MCV 85 fL (80-95); MPV 9.1 fL (8.0-11.0); Monocytes % 8.4; Neutrophils % 53.4; Platelet Count 238 10^3/uL (130-400); RBC 5.17 10^6/uL (4.36-5.78); RDW 12.6 % (11.8-14.1); RDW-SD 39.3 fL; WBC 5.61 10^3/uL (4.4-10.8)
[2023-09-09 13:44] LABS: BUN 19 mg/dL (7-18); CREATININE 0.9 mg/dL (0.70-1.30); Calcium 8.9 mg/dL (8.5-10.1); Chloride 104 mmol/L (98-107); Estimated GFR 108.68 (mL/min/1.73m2); Glucose 81 mg/dL (74-106); Sodium 141 mmol/L (136-145)
== END 2023-09-09 13:43 | disposition home or self-care (01) ==
LOC: LBO 13:43
PROVIDERS: Visit Provider Physician Assistant Medical
DX: M79.661 Pain in right lower leg (principal)
CPT/HCPCS: 36415; 80048; 85025

== ENCOUNTER 2023-12-12 09:14 | Emergency (ER) | payer MEDICAID, SELFPAY ==
[2023-12-12] VITALS (18 sets, daily range): BP systolic 122–164; BP diastolic 63–110; PULSE 73–92; RESP 11–22; TEMP 37.1; O2SAT 94–100
--- NOTE | 2023-12-12 09:15 | DI.RAD_ITS ---
Exam(s) XR CHEST 2V PA LATERAL EXAM: XR CHEST 2V PA LATERAL CLINICAL HISTORY: shortness of breath TECHNIQUE: 2D digital imaging was performed of the chest. Two images were obtained. PA and lateral views were obtained. COMPARISON: CR XR CHEST 2V PA LATERAL from 11/11/2020 FINDINGS: MEDIASTINUM: Normal. HEART: Normal. PULMONARY VASCULATURE: Normal. LUNGS: Clear. PLEURAL SPACE: No pleural effusion or pneumothorax. BONE:Within normal limits for the patient's age. OTHER FINDINGS:Normal. IMPRESSION: No acute pulmonary findings. DATA REPOSITORY: RADIATION DOSE DELIVERED:
--- NOTE | 2023-12-12 09:15 | RT.EKG_ITS ---
APPROVED REPORT Exam: Resting ECG Reason for Exam: shortness of breath Patient Location: E HR:88 bpm ECG Measurements Heart Rate 88 AXIS MD 132 P 78 QRSd 90 QRS -39 QT 358 T 55 QTc 433 Conclusion Sinus rhythm 88 no stemi
--- NOTE | 2023-12-12 09:22 | ED.GENADUL_ITS ---
Discharge Plan Disposition Patient Disposition: Transfer-Acute Inpatient Care Specific Acute Inpt Facility: Other Condition: Stable Discharge Details Clinical Impression: Dyspnea Primary Care Provider: Melisa Balderas ED Provider: Bharathi Zamudio Home Meds and New Rx's Prescriptions: No Action lisdexamfetamine [Vyvanse] 20 mg capsule 20 mg PO DAILY Patient Comments: TAKE ONE CAPSULE BY MOUTH EVERY DAY furosemide [Lasix] 20 mg tablet 10 mg PO ONCE PRN (Reason: edema) Qty: 7 0RF Patient Comments: does not take Rx Instructions: Use as needed for peripheral edema buprenorphine-naloxone [Suboxone] 8-2 mg film 1 film sublingual DAILY Patient Comments: PLACE ONE FILM UNDER THE TONGUE EVERY DAY gabapentin 600 mg tablet 600 mg PO PRN PRN Patient Comments: TAKE ONE TABLET BY MOUTH THREE TIMES A DAY FOR 7 DAYS buprenorphine-naloxone [Suboxone] 12-3 mg film 1 film sublingual DAILY Patient Comments: PLACE ONE FILM UNDER THE TONGUE EVERY DAY Discharge Instructions Instructions: Shortness of Breath, Adult ED Additional Instructions: You were seen in the emergency department for your shortness of breath. This could be some sort of viral respiratory illness but you do have recent history of superficial thrombophlebitis and IV drug use which raises your risk for blood clot. You had an elevated D-dimer which is a laboratory test that can be elevated in the setting of acute infection but also pulmonary embolism or blood clot of the lungs. This needs a CT angiogram of the thorax to rule out pulmonary embolism. I spoke with Dr. Ly at [facility] who accepted for transfer to have this study performed. Please proceed there. Referrals: [facility] [Outside] Discharge Data Discharge Date/Time-TO BE ENTERED AT DEPARTURE: 12/12/23 12:23 HPI General Date/Time Provider Initiated Documentation: 12/12/23 09:22 . HPI Narrative: 43 year-old male presents to ED today by ambulating with a chief complaint of cough, shortness of breath, chest discomfort, weakness and fatigue with onset since this past . Quality described as feels awful, no radiation to syncope, productive cough, high fever, vomiting. Severity is described as severe. Palliating factors include nothing specific attempted. Provoking factors include nothing specific. Events leading up to the incident/Associated Symptoms: Patient has had recent history of superficial thrombophlebitis of LEs that was treated. History of IVDU. Has no reliable transportation. Patient not anticoagulated. Related Data Home Medications Medication Instructions Recorded Confirmed furosemide 20 mg tablet (Lasix) 10 mg (1/2 x 20 mg) PO ONCE PRN 11/11/20 12/12/23 edema #7 tabs buprenorphine 12 mg-naloxone 3 mg 1 film sublingual DAILY 01/23/21 12/12/23 sublingual film (Suboxone) buprenorphine 8 mg-naloxone 2 mg 1 film sublingual DAILY 01/23/21 12/12/23 sublingual film (Suboxone) gabapentin 600 mg tablet 600 mg PO PRN PRN 01/23/21 12/12/23 lisdexamfetamine 20 mg capsule 20 mg PO DAILY 12/12/23 12/12/23 (Vyvanse) Previous Rx's Medication Instructions Recorded furosemide 20 mg tablet (Lasix) 10 mg (1/2 x 20 mg) PO ONCE PRN 11/11/20 edema #7 tabs Allergies Allergy/AdvReac Type Severity Reaction Status Date / Time No Known Allergies Allergy Unverified 12/12/23 09:21 General Stated Complaint: RespSymp TYLER: 3 Review of Systems All systems reviewed & are unremarkable except as noted in HPI and below Exam Narrative Exam Narrative: GENERAL APPEARANCE: Well-nourished, non-toxic, awake and alert, atraumatic, no acute distress. SKIN: Warm, pink, dry, intact, without rashes/lesions/ulcerations. HEAD: Normocephalic, atraumatic, normal hair distribution for gender/age. EYES: Normal conjunctiva, no exudates on lids/lashes. ENT: Nares patent, no circumoral cyanosis, no facial swelling NECK: Supple, trachea midline, painless cervical ROM. LUNGS/CHEST: Lungs CTA bilaterally- rhonchorous lungs diffusely, mild expiratory wheeze heard at base R lung, labored respirations, normal A/P diameter, symmetrical expansion, no chest wall deformity HEART (CV/PV): Regular rate and rhythm without murmur, no peripheral edema, no JVD. ABDOMEN: Soft, non-distended, no guarding, no tenderness. MSK: Normal ROM, no swelling/deformity to bilateral UEs or LEs, moving all extremities without weakness, no cyanosis, spine midline without tenderness, normal curvature, Praveen's negative bilaterally, no unilateral leg swelling or medial thigh tenderness. NEURO: Mental Status AAOx4 - alert to person, place, time, events No facial droop, no forehead involvement. Motor: No focal weakness - strength 5/5 in bilateral UEs and LEs, proximal and distal, symmetric. Sensory: sensation intact to light touch globally. Gait normal: patient ambulated without ataxia into ED room. PSYCH: euthymic, cooperative, pleasant, appropriate speech Course Vital Signs Vital signs: Vital Signs Temperature 37.1 C 12/12/23 09:16 Pulse 90 12/12/23 09:16 Respiratory Rate 14 12/12/23 09:16 Blood Pressure 164/110 H 12/12/23 09:16 Pulse Oximetry 97 12/12/23 09:16 Temperature 37.1 C 12/12/23 09:16 Temperature Source Skin 12/12/23 09:16 Pulse 90 12/12/23 09:16 Respiratory Rate 14 12/12/23 09:16 Respiratory Effort Short of Breath 12/12/23 09:21 Blood Pressure 164/110 H 12/12/23 09:16 Blood Pressure Position Sitting 12/12/23 09:16 Pulse Oximetry 97 12/12/23 09:16 Oxygen Delivery Method Room Air 12/12/23 09:16 Oxygen Flow Rate 0 12/12/23 09:16 Pain Level 2 12/12/23 09:16 Medical Decision Making This dictation utilizes [id number] dictation software and may contain unedited grammatical errors. 43 year-old male presents to ED today by ambulating with a chief complaint of cough, shortness of breath, chest discomfort, weakness and fatigue with onset since this past . Quality described as feels awful, no radiation to syncope, productive cough, high fever, vomiting. Severity is described as severe. Palliating factors include nothing specific attempted. Provoking factors include nothing specific. Events leading up to the incident/Associated Symptoms: Patient has had recent history of superficial thrombophlebitis of LEs that was treated within 6 months. History of IVDU. Has no reliable transportation. Patients' medical history: History of peripheral edema and IV drug abuse, cellulitis. Family and social history: No recent travel, no sick contacts, has no reliable transportation, is employed, denies recent IVDU. Pertinent exam findings / vital signs include rhonchorous lungs with mild expiratory wheezes, benign abdomen, mildly tachycardic, mildly hypoxic even after 9 mL DuoNeb and 94% at rest. Differential / pathologies of concern include viral syndrome, respiratory failure, pneumonia, sepsis, COVID, pulmonary embolism, ACS. Diagnostic studies of: -CBC, CMP, Lactate, Procalcitonin, Trop I, BNP, D-Dimer, COVID/flu/RSV PCR, lipase, CRP, magnesium, EKG, XR Chest. -CBC shows no leukocytosis, WBCs 7.81, mildly low lymphocytes- ?viral etiology - COVID/flu/RSV PCR negative -CMP shows no actionable abnormality -Magnesium within normal limits -Lactate 1.5, procalcitonin 0.1- do not suspect sepsis -CRP is elevated to 14.49 -Lipase within normal limits -Troponin negative, BNP 259, prior BNP from 2020 is 35 -D-dimer 1187, with history IVDU and recent KAIN of LE, YEARS criteria warrants CTA -XR chest shows no focal pneumonia, no pneumothorax -EKG shows sinus rhythm at 88 bpm with P waves followed by narrow complex QRS, normal axis, polymorphic P waves indicating likely left atrial enlargement, increased voltage especially in anterolateral leads, no diffuse ST depressions, no T wave abnormalities, no S1Q3T3, normal QT QTc Interventions of: -IVF 1L NS, 1g IV APAP, 15mg IV Ketorlac, 9mL DuoNeb. ED Course/Assessment/Plan: 43-year-old male presents to the ED with shortness of breath, body aches, weakness, chest discomfort, has history of IVDU and recent superficial thrombophlebitis that was treated. His workup for sepsis and pneumonia is negative, his recent clot history of the lower extremities I believe does warrant a rule out of pulmonary embolism by CTA, years criteria would support this empirically-our CT scanner is down likely till tomorrow. I spoke with Dr. Ly at [facility] who accepted the patient for transfer for CTA. If negative it would be reasonable to discharge the patient for dyspnea with prednisone, rescue inhaler, +/- antibiotics. Findings not consistent with R-heart strain, PNA, sepsis, ACS. Disposition of Dyspnea. Patient verbalized understanding of the plan and return to ED criteria and engaged in shared decision making. Medical Records Medical records reviewed: Yes I reviewed the patient's medical records. Imaging Data Radiologic Study: Attestation: I personally reviewed and interpreted this imaging study as follows: Imaging: X-Ray Radiologist's impression: EXAM: XR CHEST 2V PA LATERAL CLINICAL HISTORY: shortness of breath TECHNIQUE: 2D digital imaging was performed of the chest. Two images were obtained. PA and lateral views were obtained. COMPARISON: CR XR CHEST 2V PA LATERAL from 11/11/2020 FINDINGS: MEDIASTINUM: Normal. HEART: Normal. PULMONARY VASCULATURE: Normal. LUNGS: Clear. PLEURAL SPACE: No pleural effusion or pneumothorax. BONE:Within normal limits for the patient's age. OTHER FINDINGS:Normal. IMPRESSION: No acute pulmonary findings. Lab Data Lab results reviewed: Yes I reviewed the patient's lab results. Labs: Laboratory Tests Range/Units 12/12/23 12/12/23 09:17 09:58 WBC (4.4-10.8) 10^3/uL 7.81 RBC (4.36-5.78) 10^6/uL 4.82 Hgb (13.5-17.5) g/dL 13.8 Hct (40.0-50.0) % 41.9 MCV (80-95) fL 87 MCH (27.0-33.0) pg 28.6 MCHC (32.0-36.0) % 32.9 RDW (11.8-14.1) % 12.5 Plt Count (130-400) 10^3/uL 200 MPV (8.0-11.0) fL 9.4 Immature Gran % % 0.3 Neutrophils % % 79.9 Lymphocytes % % 8.5 Monocytes % % 6.8 Eosinophils % % 4.2 Basophils % % 0.3 Nucleated RBC % (0.0-0.3) % 0.0 Absolute Neutrophils (1.2-6.7) 10^3/uL 6.25 Absolute Lymphocytes (1.2-3.4) 10^3/uL 0.66 L Absolute Monocytes (0.1-0.8) 10^3/uL 0.53 Absolute Eosinophils (0.0-0.7) 10^3/uL 0.33 Absolute Basophils (0.0-0.2) 10^3/uL 0.02 D-Dimer (<500) ng/mlFEU 1187 H VBG Lactate (0.6-1.4) mmol/L 1.5 H Sodium (136-145) mmol/L 135 L Potassium (3.5-5.1) mmol/L 4.3 Chloride (98-107) mmol/L 97 L Carbon Dioxide (21.0-32.0) mmol/L 30.7 Anion Gap (3-11) mmol/L 7.3 BUN (7-18) mg/dL 10 Creatinine (0.70-1.30) mg/dL 0.9 Est GFR (CKD-EPI 2020) (mL/min/1.73m2) 108.68 Glucose (74-106) mg/dL 117 H Calcium (8.5-10.1) mg/dL 9.1 Magnesium (1.8-2.4) mg/dL 1.8 Total Bilirubin (0.2-1.0) mg/dL 0.61 AST (15-37) U/L 19 ALT (16-63) U/L 23 Alkaline Phosphatase (46-116) U/L 74 Troponin I (< or =60) ng/L < 50 C-Reactive Protein (<or=0.5) mg/dL 14.49 H NT-Pro-B Natriuret Pep (<300) pg/mL 259 Total Protein (6.4-8.2) g/dL 8.0 Albumin (3.4-5.0) g/dL 3.7 Lipase (16-77) U/L 14 L Procalcitonin ng/mL 0.1 COVID-19 Source Nasopharynx SARS-CoV-2 (PCR) (Negative) Negative Influenza Type A (PCR) (Negative) Negative Influenza Type B (PCR) (Negative) Negative RSV (PCR) (Negative) Negative Quality:SDOH Health Related Social Needs: No Data to Display PFSH All Active Problems (Updated 12/12/23 @ 11:59 by TRAM Horner) Dyspnea (Acute) Encounter for removal of morena (Acute) Closed head injury (Acute) Laceration of scalp (Acute) Edema, peripheral (Acute) Malaise (Acute) IV drug abuse (Acute) Cellulitis of right hand (Acute) Social History Smoking/Tobacco Use Status: Current every day Tobacco Type: cigarettes Smoking risk assessment performed?: Yes Alcohol Intake: never Drug use: Current Sobriety Substance use type: does not use Details: 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 ritalin recently Do you feel safe at home: Yes Do you feel safe in your relationship?: Yes
[2023-12-12 10:06] LABS: Lactate 1.5 mmol/L (0.6-1.4)
[2023-12-12 10:07] LABS: Abs Immature Grans 0.02 10^3/uL (0.0-0.06); Absolute Basophil Count 0.02 10^3/uL (0.0-0.2); Absolute Eosinophil Count 0.33 10^3/uL (0.0-0.7); Absolute Lymphocyte Count 0.66 10^3/uL (1.2-3.4); Absolute Monocyte Count 0.53 10^3/uL (0.1-0.8); Absolute Neutrophil Count 6.25 10^3/uL (1.2-6.7); Basophils % 0.3 %; Eosinophils % 4.2 %; HCT 41.9 % (40.0-50.0); HGB 13.8 g/dL (13.5-17.5); Immature Grans % 0.3 %; Lymphocytes % 8.5 %; MCH 28.6 pg (27.0-33.0); MCHC 32.9 % (32.0-36.0); MCV 87 fL (80-95); MPV 9.4 fL (8.0-11.0); Monocytes % 6.8 %; Neutrophils % 79.9 %; Platelet Count 200 10^3/uL (130-400); RBC 4.82 10^6/uL (4.36-5.78); RDW 12.5 % (11.8-14.1); RDW-SD 40.1 fL; WBC 7.81 10^3/uL (4.4-10.8)
[2023-12-12 10:35] LABS: ALT 23 U/L (16-63); AST 19 U/L (15-37); Albumin 3.7 g/dL (3.4-5.0); Alkaline Phosphatase 74 U/L (46-116); Anion Gap 7.3 mmol/L (3-11); BUN 10 mg/dL (7-18); Bilirubin, Total 0.61 mg/dL (0.2-1.0); C-Reactive Protein 14.49 mg/dL (<or=0.5); CO2 30.7 mmol/L (21.0-32.0); CREATININE 0.9 mg/dL (0.70-1.30); Calcium 9.1 mg/dL (8.5-10.1); Chloride 97 mmol/L (98-107); Estimated GFR 108.68 (mL/min/1.73m2); Glucose 117 mg/dL (74-106); Lipase 14 U/L (16-77); Magnesium 1.8 mg/dL (1.8-2.4); NT-proBNP 259 pg/mL (<300); Potassium 4.3 mmol/L (3.5-5.1); Sodium 135 mmol/L (136-145); Troponin I < 50 ng/L (< or =60)
[2023-12-12 10:46] LABS: Procalcitonin 0.1 ng/mL
[2023-12-12] MEDS: Albuterol/Ipratropium 3 ML UPD VIAL 9 ML UPD (10:53)
[2023-12-12] MEDS: ACETAMINOPHEN 1,000 MG/100 ML BTL 400 MG IVPB (10:53)
[2023-12-12] MEDS: Normal Saline 1,000 ML 1000 ML IV (10:53)
[2023-12-12] MEDS: Ketorolac 15 MG/ML VIAL IVP (10:53)
[2023-12-12 10:54] LABS: D-Dimer 1187 ng/mlFEU (<500)
[2023-12-12 11:00] LABS: COVID-19 PCR Negative (Negative); Influenza A PCR Negative (Negative); Influenza B PCR Negative (Negative); RSV PCR Negative (Negative)
[2023-12-12 11:05] LABS: Source Nasopharynx
--- NOTE | 2023-12-13 09:49 | NUR.NOTE ---
Patient was a patient here in the ED 12/12/23. Patient called requesting a work note to excuse him for being out yesterday and permission to return to work today. Work note provided. 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
== END 2023-12-12 12:23 | disposition short-term general hospital (02) ==
PROVIDERS: Emergency Provider Physician Assistant; PCP Family Medicine
DX: R06.09 Other forms of dyspnea (principal); F17.210 Nicotine dependence, cigarettes, uncomplicated; Z86.718 Personal history of other venous thrombosis and embolism
CPT/HCPCS: 36415; 80053; 83690; 84145; 87637; 93005; 94640; 96365; 96375; 99285; 71046; 83605; 83735; 83880; 84484; 85025; 85379; 86140; 93010; J0131; J1885; J7620